=== PATIENT | male | born 1935 | race Caucasian/White ===

== ENCOUNTER 2023-04-22 05:53 | Day surgery (SDC) | payer MEDICARE, OTHER ==
[2023-04-17 15:06] VITALS: BMI 27.6
[2023-04-22] MEDS ORDERED: LACTATED RINGERS 1,000 ML IV SCH (06:30)
[2023-04-22] MEDS ORDERED: LIDOCAINE 1% (10MG/ML) FOR IV START INTRADERMA PRN (06:30)
[2023-04-22] MEDS ORDERED: LACTATED RINGERS 1,000 ML IV ONE (06:43)
[2023-04-22] MEDS ORDERED: ONDANSETRON 4 MG/2 ML VIAL ONE (06:54)
[2023-04-22] MEDS ORDERED: SUCCINYLCHOLINE CHLORIDE 200 MG/10 ML VIAL IV ONE (07:29)
[2023-04-22] MEDS ORDERED: PHENYLEPHRINE-0.9% NACL SYG 1,000 MCG/10 ML SYRINGE ONE (07:29)
[2023-04-22] MEDS ORDERED: PROPOFOL 10 MG/ML 20 ML VIAL IV ONE (07:29)
[2023-04-22] MEDS ORDERED: fentaNYL (PF) 50 MCG/ML 2 ML AMP ONE (07:29)
[2023-04-22] MEDS ORDERED: ePHEDrine 50 MG/ML 1 ML VIAL ONE (07:29)
[2023-04-22] MEDS ORDERED: LIDOCAINE 2% INJ 20 MG/ML (2 ML VIAL) ONE (07:29)
[2023-04-22] MEDS ORDERED: BUPIVACAINE (PF) 0.5% 30 ML VIAL SQ ONE (08:02)
[2023-04-22] MEDS ORDERED: IOPAMIDOL-370 100ML BTL INJ ONE (08:10)
[2023-04-22] MEDS ORDERED: HYDROmorphone 1 MG/ML 1 ML SYRINGE IVP PRN (08:30)
[2023-04-22] MEDS ORDERED: KETOROLAC 15 MG/ML 1 ML VIAL IVP PRN (08:30)
[2023-04-22] MEDS ORDERED: SODIUM CHLORIDE 0.9% 1,000 ML IV SCH (08:30)
[2023-04-22] MEDS ORDERED: HYDROcodone/APAP 5-325MG 1 EACH TAB PO PRN (08:30)
[2023-04-22] MEDS ORDERED: HYDROmorphone 0.5 MG/0.5 ML SYRINGE IVP PRN (08:30)
[2023-04-22] MEDS ORDERED: ONDANSETRON 4 MG/2 ML VIAL IVP PRN (08:30)
[2023-04-22] MEDS ORDERED: BENZOCAINE/MENTHOL LOZENG 1 EACH LOZENGE MUCOUS MEM PRN (08:30)
[2023-04-22] MEDS ORDERED: CYCLOBENZAPRINE 5 MG TAB PO PRN (08:30)
--- NOTE | 2023-04-22 08:38 | P.OP ---
Date of Procedure: 04/22/23 Preoperative Diagnosis: T12 vertebral compression fracture, traumatic due to a fall Thoracolumbar back pain, failed conservative treatment History of prior lumbar decompression and fusion L4 5 Degenerative scoliosis Postoperative Diagnosis: Same Anesthesia: GETA Pathology: other (T12 vertebral body biopsy sent to pathology) Condition: stable Disposition: PACU Description of Procedure: BRIEF OPERATIVE NOTE Preoperative Diagnosis: T12 vertebral compression fracture, traumatic due to a fall Thoracolumbar back pain, failed conservative treatment History of prior lumbar decompression and fusion L4 5 Degenerative scoliosis Postoperative Diagnosis: Same Procedure: Kyphoplasty of T12 Vertebral body biopsy of T12 Use of biplanar fluoroscopic guidance Surgeon: Dr. Barrios [facility] Specialist: Georges Darling is present throughout the entire the case persistence during positioning, dissection, exposure, visualization, and all crucial elements of the case as well as closure. Anesthesia: General anesthesia per Dr. Forman Estimated blood loss: Less than 10 mL Specimen: Vertebral body biopsy of T12 sent to pathology in formalin Complications: None apparent Components implanted: Bone cement approximately 6 mL Disposition: To recovery room in good stable condition. OPERATIVE INDICATIONS The patient has been having issues in their back ever since sustaining an injury. He had sustained a fall while triathlon his slippers at home. He had acute new onset pain at his mid back. He was having significant difficulty with this and was found have a new compression fracture T12 which correlated well with his pain. He has history of lumbar issues and decompression and fusion of past with prior fusion L4 5. He had done fairly well with this years ago. He felt that this pain was different than his prior issues and it correlated well with the new findings of compression fracture at T12. The patient has been through conservative treatment. They attempted conservative care with bracing however they're not having any benefit despite brace use. They continue to have significant pain and debility due to their fracture. We discussed various treatment options including surgery, and the patient wishes to proceed with surgery We discussed the risk, patient's alternatives and benefits of surgery including but not limited to, risk of bleeding risk of infection, risk of need for further surgery, risk of decreased, loss of motion, loss of function, cement extravasation, nerve damage, paralysis, heart attack, blindness and . OPERATIVE SUMMARY After discussing all the risks, patient alternatives and benefits at length, the patient elected to proceed with surgical intervention, signed informed consent, and presented for their procedure. The patient was seen and examined in the preoperative holding area and the surgical site was marked. The patient was given antibiotics and brought to the operating room. The patient was sedated and intubated by anesthesia in standard fashion. The patient was positioned on to the operating room table in a prone position on the appropriate well-padded and well molded bilateral chest rolls. We were careful to pad any bony prominences and pressure points. We were careful to maintain the patient's cervical spine and good neutral alignment and position throughout. We used 2 C-arm machines to establish biplanar fluoroscopic guidance in AP and lateral positions. We were able to localize the fractures appropriately at T12. The patient was prepped and draped in a normal standard fashion. An appropriate timeout and keystone protocol performed. We were able to proceed with the surgery. The local wound area was infiltrated with local anesthetic. An incision was made over the lateral aspect of the pedicle over the appropriate levels with a small 2 mm stab incision on the right. Intraoperative fluoroscopy was taken which showed a marker at the appropriate level. With the appropriate level of T12 positively confirmed, I was able to position a sharp trocar over the lateral aspect of the pedicle. As able to advance the trocar into the pedic le and into the posterior aspect of vertebral body being careful to avoid penetration cephalad caudad or medially. The trocar was placed appropriately into the posterior aspect of vertebral body at the appropriate levels. This was confirmed with C-arm guidance. With the trocar intact I was then able to take a bone biopsy with a biopsy punch or a bony drill. The biopsy specimen was passed off to be sent to pathology in formalin. I was then able to place the kyphoplasty balloon within the vertebral body. The position was checked on C-arm. I was able to inflate the balloon under low to m oderate pressure and visualization with C-arm. The balloon was well enclosed within the vertebral body. The cement was prepared. With the cement at appropriate working condition the balloons were deflated and removed. I was able to place bony cement with trocar with the cement delivery device under low pressure. It had good fill within the vertebral body. The cement filled in anteriorly as well as along the endplates of the fracture lines. There is no evidence of any extravasation of the cement posteriorly toward the canal. The cement was well contained at the appropriate levels. There is some cement through the superior endplate fracture line into the disc but remained adequately contained. The cement was allowed to cure appropriately. The trochars removed and final images were taken on C-arm. This showed the cement at the appropriate levels of T12 with approximately 6 mL of cement. We were able to proceed with closure. The wound was cleaned and dried and dressed with the appropriate dressing. The drapes were broken down. The patient was gently rolled back onto their hospital bed being careful to maintain their cervical spine and good neutral alignment and position. They were woken up by anesthesia, extubated, and brought to the recovery room in good stable condition. The patient will be admitted to the hospital for observation and for appropriate postoperative care, medical management and monitoring. We will continue to follow them closely about the postoperative course.
[2023-04-22] MEDS ORDERED: FINASTERIDE 5 MG TAB PO SCH (09:00)
[2023-04-22] MEDS ORDERED: ASPIRIN 81 MG PO SCH (09:00)
[2023-04-22] MEDS ORDERED: DULoxetine HCL 60 MG CAPSULE.DR PO SCH (09:00)
[2023-04-22] MEDS ORDERED: amLODIPine 10 MG TAB PO SCH (09:00)
[2023-04-22] MEDS ORDERED: HYDROcodone/APAP 7.5-325MG 1 EACH TAB PO SCH (09:00)
[2023-04-22] MEDS ORDERED: SPIRONOLACTONE 25 MG TAB PO SCH (09:00)
--- NOTE | 2023-04-22 09:11 | FL ---
Intraoperative/procedural fluoroscopic services were provided. Total fluoroscopy time is 56 seconds w ith a total of 2 submitted images to PACS. Please see the operative/procedural note for further detai ls. DAP: 4.8+11.45 mGym2
[2023-04-22 09:36] VITALS: PULSE 72
[2023-04-22 10:06] VITALS: BP 144/71; RESP 17; TEMP 98.5
[2023-04-22] MEDS: ATORVASTATIN 80 MG TAB PO SCH (11:46)
[2023-04-22] MEDS ORDERED: carvediloL 12.5 MG TAB PO SCH (17:30)
[2023-04-22] MEDS ORDERED: traZODone HCL 50 MG TAB PO SCH (21:00)
[2023-04-23] MEDS ORDERED: PANTOPRAZOLE 40 MG TABLET PO SCH (07:30)
== END 2023-04-22 12:18 | disposition home or self-care (01) ==
LOC: OR 05:53 → 4SSUR 08:35 → OR 12:18
PROVIDERS: ATTEND Orthopaedic Surgery Orthopaedic Surgery of the Spine
DX: S22.080A Wedge compression fracture of T11-T12 vertebra, initial encounter for closed fracture (principal); I10 Essential (primary) hypertension; E78.5 Hyperlipidemia, unspecified; M19.90 Unspecified osteoarthritis, unspecified site; N40.0 Benign prostatic hyperplasia without lower urinary tract symptoms; K21.9 Gastro-esophageal reflux disease without esophagitis; Z79.899 Other long term (current) drug therapy; Z87.891 Personal history of nicotine dependence; W19.XXXA Unspecified fall, initial encounter
CPT/HCPCS: 88307; 88311; 72100; 22513; C1713; S0138; J0330; J0690; J2405; J3010; J2370; J2704; Q9967; J2001